=== PATIENT | female | born 1960 | race Two or more races ===

== ENCOUNTER 2020-03-13 13:04 | Emergency (ER) | payer OTHER ==
[~2020-03-13] VITALS: Ht 160 cm; Wt 59.0 kg
[2020-03-13] MEDS ORDERED: SYNTHROID137 MCG (13:15)
== END 2020-03-13 17:33 | disposition home or self-care (01) ==
LOC: ER 13:04
DX: N20.0 Calculus of kidney (principal); R10.31 Right lower quadrant pain

== ENCOUNTER 2020-05-09 10:38 | Outpatient (CLI) | payer OTHER ==
[~2020-05-09 10:38] MED LIST: SYNTHROID137 MCG
== END 2020-05-09 10:57 | disposition home or self-care (01) ==
LOC: MAMO-SONO 10:38 → SONOGRAMA 11:00 → MAMO-SONO 11:15
PROVIDERS: ATTEND Obstetrics & Gynecology Gynecology
DX: R10.2 Pelvic and perineal pain (principal); Z12.31 Encounter for screening mammogram for malignant neoplasm of breast; N64.59 Other signs and symptoms in breast; N64.4 Mastodynia

== ENCOUNTER 2021-05-01 08:47 | Outpatient (CLI) | payer OTHER | END 2021-05-01 09:05 | disposition home or self-care (01) | LOC: SONOGRAMA 08:47 | PROVIDERS: ATTEND Obstetrics & Gynecology Gynecology | DX: R10.2 Pelvic and perineal pain (principal); E04.1 Nontoxic single thyroid nodule ==

== ENCOUNTER 2021-09-03 14:25 | Outpatient (CLI) | payer OTHER | END 2021-09-03 14:34 | disposition home or self-care (01) | LOC: MAMO-SONO 14:25 | PROVIDERS: ATTEND General Practice | DX: N64.4 Mastodynia (principal) ==

== ENCOUNTER 2021-09-08 09:13 | Outpatient (CLI) | payer OTHER | END 2021-09-08 09:25 | disposition home or self-care (01) | LOC: SONOGRAMA 09:13 | PROVIDERS: ATTEND Obstetrics & Gynecology Gynecology | DX: R93.89 Abnormal findings on diagnostic imaging of other specified body structures (principal) ==